=== PATIENT | female | born 1990 | race Caucasian/White ===

== ENCOUNTER → 2017-09-16 14:24 | Outpatient (CLI) | payer OTHER, SELFPAY ==
[2017-09-18 16:54] LABS: Progesterone 0.6 ng/mL
== END ==
PROVIDERS: Visit Provider Obstetrics & Gynecology
DX: N91.2 Amenorrhea, unspecified (principal)
CPT/HCPCS: 36415; 84144

== ENCOUNTER → 2017-09-22 14:23 | Outpatient (CLI) | payer OTHER, SELFPAY ==
[2017-09-23 20:58] LABS: HCG Quantitative /Beta subunit < 2.39 mIU/mL
== END ==
PROVIDERS: Visit Provider Obstetrics & Gynecology
DX: N91.2 Amenorrhea, unspecified (principal)
CPT/HCPCS: 36415; 84702

== ENCOUNTER → 2017-10-28 14:27 | Outpatient (CLI) | payer OTHER, SELFPAY ==
[2017-10-28 14:51] LABS: Appearance Urine UA CLEAR; Bilirubin Urine UA NEGATIVE (NEGATIVE); Color Urine UA YELLOW; Glucose Urine UA NEGATIVE (Normal); Ketones Urine UA NEGATIVE (NEGATIVE); Leukocyte Esterase Urine UA NEGATIVE (NEGATIVE); Nitrite Urine UA Negative (Negative); Occult Blood Urine UA NEGATIVE (Negative); Protein Urine UA NEGATIVE (Negative); Specific Gravity Urine UA >=1.030 (1.000-1.035); Urobilinogen Urine UA 0.2 E.U./dL (0.2); pH Urine UA 5.5 (4.5-8.0)
[2017-10-28 15:08] LABS: Bacteria Urine Moderate (10-30); Culture Indicated Urine Cult Not Indicated; RBC Urine 0-1/HPF (0-5/HPF); Squamous Epithelial Cell Urine 10-30 /HPF; WBC Urine 1-5/HPF (0-5/HPF)
[2017-10-30 15:31] LABS: Progesterone 11.8 ng/mL
== END ==
PROVIDERS: Visit Provider Obstetrics & Gynecology
DX: N97.0 Female infertility associated with anovulation (principal); R30.0 Dysuria; R35.0 Frequency of micturition
CPT/HCPCS: 36415; 81001; 84144

== ENCOUNTER → 2017-12-09 12:40 | Outpatient (CLI) | payer OTHER, SELFPAY ==
[2017-12-09 14:53] LABS: HCG Quantitative /Beta subunit < 2.39 mIU/mL
== END ==
PROVIDERS: Visit Provider Obstetrics & Gynecology
DX: N91.2 Amenorrhea, unspecified (principal)
CPT/HCPCS: 36415; 84702

== ENCOUNTER → 2018-02-03 12:38 | Outpatient (CLI) | payer OTHER, SELFPAY ==
[2018-02-03 15:10] LABS: Free T4, Direct Thyroxine 0.34 ng/dL (0.78-2.19)
[2018-02-05 15:55] LABS: Progesterone 16.9 ng/mL
== END ==
PROVIDERS: Visit Provider Obstetrics & Gynecology
DX: E05.00 Thyrotoxicosis with diffuse goiter without thyrotoxic crisis or storm (principal); N97.0 Female infertility associated with anovulation
CPT/HCPCS: 36415; 84144; 84439; 84443

== ENCOUNTER → 2018-02-08 12:14 | Outpatient (CLI) | payer OTHER, SELFPAY ==
[2018-02-08 13:12] LABS: HCG Quantitative /Beta subunit 13.35 mIU/mL
== END ==
PROVIDERS: Visit Provider Obstetrics & Gynecology
DX: N91.2 Amenorrhea, unspecified (principal)
CPT/HCPCS: 36415; 84702

== ENCOUNTER → 2018-02-10 12:13 | Outpatient (CLI) | payer OTHER, SELFPAY ==
[2018-02-10 15:18] LABS: HCG Quantitative /Beta subunit 22.04 mIU/mL
== END ==
PROVIDERS: PCP Family Medicine; Visit Provider Obstetrics & Gynecology
DX: E03.9 Hypothyroidism, unspecified (principal); N91.2 Amenorrhea, unspecified
CPT/HCPCS: 36415; 84702

== ENCOUNTER → 2018-02-12 13:10 | Outpatient (CLI) | payer OTHER, SELFPAY ==
[2018-02-12 14:33] LABS: HCG Quantitative /Beta subunit 22.03 mIU/mL
== END ==
PROVIDERS: PCP Family Medicine; Visit Provider Obstetrics & Gynecology
DX: N91.2 Amenorrhea, unspecified (principal)
CPT/HCPCS: 36415; 84702

== ENCOUNTER → 2018-02-15 12:00 | Outpatient (CLI) | payer OTHER, SELFPAY ==
[2018-02-15 13:24] LABS: HCG Quantitative /Beta subunit 12.74 mIU/mL
== END ==
PROVIDERS: Obstetrics & Gynecology; PCP Family Medicine; Visit Provider Family Medicine
DX: N91.2 Amenorrhea, unspecified (principal)
CPT/HCPCS: 36415; 84702

== ENCOUNTER → 2018-03-19 15:22 | Outpatient (CLI) | payer OTHER, SELFPAY ==
[2018-03-19 16:17] LABS: Free T4, Direct Thyroxine 1.08 ng/dL (0.78-2.19)
[2018-03-19 16:31] LABS: Thyroid Stimulating Hormone 2.43 uIU/mL (0.47-4.68)
== END ==
PROVIDERS: PCP Family Medicine; Visit Provider Obstetrics & Gynecology
DX: E03.9 Hypothyroidism, unspecified (principal)
CPT/HCPCS: 36415; 84439; 84443

== ENCOUNTER → 2018-04-21 21:18 | Outpatient (CLI) | payer OTHER, SELFPAY | PROVIDERS: PCP Family Medicine; Visit Provider Physician Assistant | DX: J02.9 Acute pharyngitis, unspecified (principal) | CPT/HCPCS: 87070 ==

== ENCOUNTER → 2018-05-17 13:31 | Outpatient (CLI) | payer OTHER, SELFPAY ==
[2018-05-17 15:29] LABS: HCG Quantitative /Beta subunit 4.32 mIU/mL
== END ==
PROVIDERS: PCP Family Medicine; Visit Provider Obstetrics & Gynecology
DX: N91.2 Amenorrhea, unspecified (principal)
CPT/HCPCS: 36415; 84702

== ENCOUNTER → 2018-05-19 11:47 | Outpatient (CLI) | payer OTHER, SELFPAY ==
[2018-05-19 12:39] LABS: HCG Quantitative /Beta subunit 6.41 mIU/mL
== END ==
PROVIDERS: PCP Family Medicine; Visit Provider Obstetrics & Gynecology
DX: N97.0 Female infertility associated with anovulation (principal)
CPT/HCPCS: 36415; 84702

== ENCOUNTER → 2018-05-21 10:44 | Outpatient (CLI) | payer OTHER, SELFPAY ==
[2018-05-21 12:30] LABS: HCG Quantitative /Beta subunit 6.85 mIU/mL
== END ==
PROVIDERS: Family Provider Family Medicine; PCP Family Medicine; Visit Provider Obstetrics & Gynecology
DX: N91.2 Amenorrhea, unspecified (principal)
CPT/HCPCS: 36415; 84702